=== PATIENT | female | born 1930 | race African-American/Black ===

== ENCOUNTER 2018-06-23 00:21 | Inpatient (IN) | payer MEDICARE ==
[~2018-06-23] VITALS: Ht 162.6 cm; Wt 98.6 kg
[2018-06-23] MEDS ORDERED: CARDIZEM LA180 MG PO (00:26)
[2018-06-23] MEDS ORDERED: TOPROL XL50 MG (00:26)
[2018-06-23] MEDS ORDERED: PLAVIX75 MG PO (00:26)
[2018-06-23] MEDS ORDERED: K-DUR20 MEQ PO (00:26)
[2018-06-23] MEDS ORDERED: LASIX20 MG (00:27)
[2018-06-23 01:06] LABS: BASOPHILS 0.2 % (0-2); EOSINOPHILS 3.7 % (0-7); HEMATOCRIT 34.4 % (36.0-48.0); HEMOGLOBIN 10.8 g/dL (12-16); IMMATURE GRANULOCYTES 0.5 % (0-5); LYMPHOCYTES 27.7 % (15-50); MCH 29.2 pg (26.0-34.0); MCHC 31.4 g/dL (31.0-37.0); MEAN PLATELET VOLUME 9.5 fL (7.4-10.4); MONOCYTES 11.3 % (2-11); NEUTROPHILS 56.6 % (40-80); PLATELET COUNT 197 10x3/uL (130-400); RDW 13.9 % (11.5-14.5); WBC 4.3 10x3/uL (4.8-10.8)
[2018-06-23 01:23] LABS: ALBUMIN 2.5 g/dL (3.4-5.0); ANION GAP 13.8 mmol/L (8-16); BILIRUBIN - TOTAL 0.12 mg/dL (0.2-1.3); CALCIUM 10.3 mg/dL (8.5-10.1); CARBON DIOXIDE 23.8 mmol/L (21.0-32.0); CREATININE - SERUM 1.6 mg/dL (0.6-1.3); POTASSIUM - SERUM 3.6 mmol/L (3.5-5.1)
--- NOTE | 2018-06-23 01:33 | NUR ---
LAB CALLED WITH LACTIC ACID 2.4. CRITICAL LAB FORM COMPLETED AND AWARE.
[2018-06-23 01:34] LABS: TROPONIN-I 0.022 ng/mL (0.000-0.060)
[2018-06-23 01:48] LABS: APPEARANCE HAZY (CLEAR); BACTERIA MANY /hpf (NONE SEEN); BILIRUBIN NEGATIVE (NEGATIVE); COLOR YELLOW (YELLOW); EPITHELIAL CELLS NSEEN /hpf (0-5); GLUCOSE NEGATIVE (NEGATIVE); KETONE NEGATIVE (NEGATIVE); NITRITE POSITIVE (NEGATIVE); PROTEIN TRACE mg/dL (NEGATIVE); RED CELLS - URINE 0-5 /hpf (0-5); UROBILINOGEN NORMAL (NORMAL); WHITE CELLS - URINE >50 /hpf (0-5)
--- NOTE | 2018-06-23 02:52 | NUR ---
RECEIVED PT TO FLOOR FROM ER VIA STRETCHER ACCOMPANIED BY FAMILY AND LOENARD BANKS. IV NOT PATENT UPON ARRIVAL. RESITED BY LEONARD BANKS TO RIGHT HAND. RESUMED ANTIBIOTIC INFUSION. REVIEWED HOME MEDS AND HISTORY. ASSESSMENT COMPLETE PER FLOW-SHEET. NO C/O OF PAIN OR NAUSEA NOW. NO NEEDS. WILL CONTINUE TO MONITOR.
[2018-06-23] MEDS ORDERED: METOPROLOL TART50 MG PO (02:56)
[2018-06-23] MEDS ORDERED: FUROSEMIDE40 MG PO (02:57)
[2018-06-23] MEDS ORDERED: DOK100 MG PO (03:00)
[2018-06-23] MEDS ORDERED: MULTI-DAY VITAM1 TAB PO (03:01)
[2018-06-23 04:29] VITALS: BP 147/61; Ht 162.6 cm; Wt 98.6 kg
[2018-06-23 04:32] VITALS: BP 159/73
[2018-06-23 10:10] VITALS: BP 159/75
--- NOTE | 2018-06-23 11:02 | NUR ---
PT DISORIENTED TO TIME. BREATH SOUNDS CLEAR BILAT. IV TO RIGHT HAND, PATENT, DRESSING CLEAN DRY AND INTACT. FAMILY AT BEDSIDE. BED LOW, CALL LIGHT IN REACH. NO OTHER NEEDS AT THIS TIME.
[2018-06-23 14:23] VITALS: BP 169/76
[2018-06-23 14:56] LABS: % SATURATION 23 % (15-55); IRON 54 ug/dl (35-150); TOTAL IRON BIND CAPACITY 228 ug/dl (260-445); UNSAT IRON BIND CAPACITY 174 ug/dl (150-375)
[2018-06-23 15:04] LABS: FERRITIN 235 ng/mL (3-244); LDH 364 U/L (81-234)
[2018-06-23 16:00] VITALS: BP 126/68
[2018-06-23 20:00] VITALS: BP 127/67
--- NOTE | 2018-06-23 20:30 | NUR ---
ADMISSION ASSESSMENT COMPLETE AND HISTORY REVIEWED. KCL RIDERS INFUSING. NO NEEDS. WILL CONTINUE TO MONITOR.
--- NOTE | 2018-06-23 21:03 | NUR ---
PT RESTING QUIETLY. GAVE SCHEDULED MEDS. ASSESSMENT COMPLETE PER FLOW-SHEET. NO OTHER NEEDS. DAUGHTER AT BEDSIDE. WILL CONTINUE TO MONITOR.
--- NOTE | 2018-06-23 22:20 | NUR ---
REDRAW POTASSIUM 1.6 - GIVING KCL 10 MEQ RIDER Q1H X6. PUT IN ORDER PER ELECTROLYTE PROTOCOL. PT RECEIVING 6 NOW.
--- NOTE | 2018-06-23 22:20 | NUR ---
REDRAW POTASSIUM 1.6 - GIVING KCL 10 MEQ RIDER Q1H X6. PUT IN ORDER PER ELECTROLYTE PROTOCOL. PT RECEIVING 6 NOW.
[2018-06-24] VITALS: BP 121/59
[2018-06-24 03:00] VITALS: BP 175/79
[2018-06-24 06:58] LABS: BASOPHILS 0.2 % (0-2); HEMATOCRIT 31.2 % (36.0-48.0); HEMOGLOBIN 9.7 g/dL (12-16); LYMPHOCYTES 34.7 % (15-50); MCHC 31.1 g/dL (31.0-37.0); MCV 93.1 fL (80.0-100.0); MEAN PLATELET VOLUME 9.7 fL (7.4-10.4); MONOCYTES 9.1 % (2-11); PLATELET COUNT 191 10x3/uL (130-400); RBC 3.35 10x6/uL (4.00-5.40); RDW 14.1 % (11.5-14.5); WBC 4.8 10x3/uL (4.8-10.8)
[2018-06-24 07:14] LABS: ANION GAP 11.4 mmol/L (8-16); CALCIUM 9.4 mg/dL (8.5-10.1); CARBON DIOXIDE 25.4 mmol/L (21.0-32.0); POTASSIUM - SERUM 3.8 mmol/L (3.5-5.1)
[2018-06-24 07:34] LABS: CREATININE - SERUM 1.1 mg/dL (0.6-1.3)
[2018-06-24 09:23] VITALS: BP 160/75
[2018-06-24 13:56] VITALS: BP 154/75
[2018-06-24] MEDS ORDERED: FLORAJEN3 CAPS460 MG PO (15:05)
[2018-06-24] MEDS ORDERED: Levaquin PO (15:05)
--- NOTE | 2018-06-24 15:57 | MORECARE ---
CASE MANAGEMENT DISCHARGE SUMMARY PATIENT: RENUKA DYER UNIT: [id number] ADM DATE: 06/23/18 AGE: 88 : [birth year] SEX: F ROOM/BED: D.2222 AUTHOR: CHELE ADHIKARI PHYSICIAN: REFERRING PHYSICIAN: WILMAR KHAN MD DATE OF SERVICE: 06/24/18 Discharge Plan Patient Name: RENUKA DYER [facility] [facility] 1930 Planned Disposition: Home Hlth Svc w Plan Readm Anticipated Discharge Date: 06/24/18 Discharge Date: Expected LOS: 1 Initial Reviewer: [email or web address] Initial Review Date: 06/24/2018 Generated: 06/24/18 4:56 pm External Providers External Provider: [facility] Next Contact Date: Service Request Date: Service Type: Resolution: Reviewer: Comments: Patient Name: RENUKA DYER Page [id number] at 1557 All edits/amendments must be made on the electronic document DICTATION DATE: 06/24/18 1556 PLANT RELIABILITY ENGINEER: AD 06/24/18 1556 RPT#: [id number] PR DATE: STATUS: ADM IN [facility] [address] [place] [address] END OF REPORT
--- NOTE | 2018-06-24 16:04 | MORECARE ---
CASE MANAGEMENT DISCHARGE SUMMARY PATIENT: RENUKA DYER UNIT: [id number] ADM DATE: 06/23/18 AGE: 88 : [birth year] SEX: F ROOM/BED: D.2222 AUTHOR: CHELE ADHIKARI PHYSICIAN: REFERRING PHYSICIAN: WILMAR KHAN MD DATE OF SERVICE: 06/24/18 Discharge Plan Patient Name: RENUKA DYER Facility: [facility]:[place] : 1930 Planned Disposition: Home Hlth Svc w Plan Readm Anticipated Discharge Date: 06/24/18 Discharge Date: Expected LOS: 1 Initial Reviewer: [email or web address] Initial Review Date: 06/24/2018 Generated: 06/24/18 5:04 pm Comments DCP- Discharge Planning Updated by [email or web address]: Blanche Edward on 06/24/18 3:[address] Patient Name: RENUKA DYER Admission Status: ER Accout number: [id number] Admission Date: 06-23-2018 : 1930 Admission Diagnosis: Attending: WILMAR KHAN Current LOS: 1 Anticipated DC Date: 06-24-2018 Planned Disposition: Home Hlth Svc w Plan Readm Primary Insurance: MEDICARE A & B Discharge Planning Comments: CM met with patient to complete initial dc planning assessment. CM educated patient on the CM role and verbal consent given by patient to complete assessment. Patient's daughter and son in the room. Patient lives at home with her daughter (Osvaldo). At discharge patient plans to return and feels this is a safe discharge. CM discussed availability of home health, rehab services, and medical equipment. She is current with [facility] home health and would like to continue with [facility]. I spoke with Erasmo at [facility] and clinical faxed. Her family is in the room to take her home. CM will continue to follow and will assist as needed with dc plans/needs. Control Electrician: Blanche Edward DCPIA - Discharge Planning Initial Assessment Updated by [email or web address]: Blanche Edward on 06/24/18 3:58 pm * Is the patient Alert and Oriented? Yes * PCP Dr. Robbie Mcelroy * Pharmacy [facility] [address] * Preadmission Environment Home with Family * ADLs Partial Dependent * Partial ADLs (Assistance needed) Ambulation Bathing Dressing Medication Management Transfers * Equipment Bedside Commode Cane Other Walker Wheelchair * Other Equipment Walk in shower * List name and contact numbers for known caregivers / representatives who currently or will assist patient after discharge: Osvaldo Dyer - DTR - [phone] Julian Dyer - son - [phone] * Verbal permission to speak to the caregivers and representatives has been obtained from the patient. Yes * Community resources currently utilized Home Health * [facility] * Additional services required to return to the preadmission environment? No * Can the patient safely return to the preadmission environment? Yes * Has this patient been hospitalized within the prior 30 days at any hospital? Yes Last DP export: 06/24/18 2:57 p Patient Name: RENUKA DYER Page [id number] at 1604 All edits/amendments must be made on the electronic document DICTATION DATE: 06/24/181602 SHOP FIRER/FIREMAN: AD 06/24/181602 RPT#: [id number] DC DATE: STATUS: ADM IN [facility] [address] [place] [address] END OF REPORT
--- NOTE | 2018-06-24 16:53 | NUR ---
PT DC HOME, WENT OVER DC MEDS AND APPOINTMENTS WITH PT AND DAUGHTER ALL QUESTIONS ANSWERED
[2018-06-25 09:21] LABS: FOLATE (FOLIC ACID) - SERUM >20.0 ng/mL (>3.0)
--- NOTE | 2018-06-26 15:45 | MORECARE ---
CASE MANAGEMENT DISCHARGE SUMMARY PATIENT: RENUKA DYER UNIT: [id number] ADM DATE: 06/23/18 AGE: 88 : [birth year] SEX: F ROOM/BED: D.2222 AUTHOR: [email or web address] PHYSICIAN: REFERRING PHYSICIAN: WILMAR KHAN MD DATE OF SERVICE: 06/26/18 Discharge Plan Patient Name: RENUKA DYER Facility: [facility]:[place] : 1930 Planned Disposition: Home Hlth Svc w Plan Readm Anticipated Discharge Date: 06/24/18 Discharge Date: 06/24/2018 Expected LOS: 1 Initial Reviewer: [email or web address] Initial Review Date: 06/24/2018 Generated: 06/26/18 4:45 pm Comments DCP- Discharge Planning Updated by [email or web address]: Blanche Edward on 06/24/18 3:[address] Patient Name: RENUKA DYER Admission Status: ER Accout number: [id number] Admission Date: 06-23-2018 : 1930 Admission Diagnosis: Attending: WILMAR KHAN Current LOS: 1 Anticipated DC Date: 06-24-2018 Planned Disposition: Home Hlth Svc w Plan Readm Primary Insurance: MEDICARE A & B Discharge Planning Comments: CM met with patient to complete initial dc planning assessment. CM educated patient on the CM role and verbal consent given by patient to complete assessment. Patient's daughter and son in the room. Patient lives at home with her daughter (Osvaldo). At discharge patient plans to return and feels this is a safe discharge. CM discussed availability of home health, rehab services, and medical equipment. She is current with [facility] home health and would like to continue with [facility]. I spoke with Erasmo at [facility] and clinical faxed. Her family is in the room to take her home. CM will continue to follow and will assist as needed with dc plans/needs. Computing Services Director: Blanche Edward DCPIA - Discharge Planning Initial Assessment Updated by [email or web address]: Blanche Edward on 06/24/18 3:58 pm * Is the patient Alert and Oriented? Yes * PCP Dr. Robbie Mcelroy * [facility] * Preadmission Environment Home with Family * ADLs Partial Dependent * Partial ADLs (Assistance needed) Ambulation Bathing Dressing Medication Management Transfers * Equipment Bedside Commode Cane Other Walker Wheelchair * Other Equipment Walk in shower * List name and contact numbers for known caregivers / representatives who currently or will assist patient after discharge: Osavldo Dyer - DTR - [phone] Julian Dyer - son - [phone] * Verbal permission to speak to the caregivers and representatives has been obtained from the patient. Yes * Community resources currently utilized Home Health * [facility]. [facility] * Additional services required to return to the preadmission environment? No * Can the patient safely return to the preadmission environment? Yes * Has this patient been hospitalized within the prior 30 days at any hospital? Yes Last DP export: 06/24/18 3:04 p Patient Name: RENUKA DYER Page 13601 at 1545 All edits/amendments must be made on the electronic document DICTATION DATE: 06/26/18 1545 MANAGER CASE MANAGEMENT: AD 06/26/18 1545 RPT#: [id number] DC DATE:06/24/18 STATUS: DIS IN [facility] [address] [place] [address] END OF REPORT
== END 2018-06-24 17:03 | disposition home health service (06) | DRG 690 ==
LOC: D.ER 00:21 → D.MS 02:25 → OBSVTIME 02:25 → D.ER 02:39 → D.MS 14:39
PROVIDERS: Family Medicine; ADMIT Internal Medicine Nephrology; ATTEND Internal Medicine Nephrology
DX: N39.0 Urinary tract infection, site not specified (principal); N17.9 Acute kidney failure, unspecified; I25.10 Atherosclerotic heart disease of native coronary artery without angina pectoris; D64.9 Anemia, unspecified; E83.52 Hypercalcemia; Z86.718 Personal history of other venous thrombosis and embolism; I11.0 Hypertensive heart disease with heart failure; I50.9 Heart failure, unspecified; Z86.73 Personal history of transient ischemic attack (TIA), and cerebral infarction without residual deficits